=== PATIENT | male | born 1985 ===

== ENCOUNTER 2024-02-27 01:06 | Emergency (ER) | payer SELFPAY ==
[~2024-02-27] VITALS: Ht 175 cm; Wt 104.5 kg
[2024-02-27 01:18] VITALS: TEMP 98.2
[2024-02-27] MEDS ORDERED: Ibuprofen 600 MG TAB PO ONE (01:30)
[2024-02-27 01:45] LABS: BASO % 0.5 % (0.0-2.0); EOS # 0.1 K/mm3 (0.0-0.7); GRAN # 5.1 K/mm3 (1.4-6.5); GRAN % 63.3 % (42.2-75.2); HEMATOCRIT 45.2 % (42.0-52.0); HEMOGLOBIN 15.4 g/dl (13.5-18.0); LYMPH # 2.1 K/mm3 (1.2-3.4); LYMPH % 25.7 % (20.0-51.0); MEAN CELL VOLUME 88 fl (80.0-100.0); MEAN CORPUSCULAR HEMOGLOBIN 30 pg (27-31); MEAN CORPUSCULAR HGB CONC 34 g/dl (33.0-37.0); MEAN PLATELET VOLUME 9.6 fl (7.4-10.4); MONO # 0.7 K/mm3 (0.1-0.6); MONO % 9.2 % (1.7-9.3); PLATELET COUNT 330 K/mm3 (130-400); RED BLOOD COUNT 5.16 M/mm3 (4.20-5.60); REDCELL DISTRIBUTION WIDTH-CV 12.8 % (11.5-14.5)
[2024-02-27 02:12] LABS: ALBUMIN 3.5 g/dL (3.5-5.0); BILIRUBIN,TOTAL 0.6 mg/dL (0.2-1.2); CALCIUM 9.7 mg/dL (8.4-10.2); CREATININE, serum 0.87 mg/dL (0.72-1.25); POTASSIUM 3.7 mEq/L (3.5-4.5); TOTAL PROTEIN 7.4 g/dl (6.2-8.1)
[2024-02-27 02:54] LABS: C-REACTIVE PROTEIN 4.44 mg/dL (0.00-0.50)
[2024-02-27] MEDS ORDERED: NORCO 325 MG-51 TAB PO (03:08)
[2024-02-27] MEDS ORDERED: PREDNISONE20 MG PO (03:08)
[2024-02-27 03:35] VITALS: BP 140/81; PULSE 80
== END 2024-02-27 03:40 | disposition home or self-care (01) ==
LOC: COL.ER 01:06
PROVIDERS: Nurse Practitioner
DX: M25.571 Pain in right ankle and joints of right foot (principal); F17.200 Nicotine dependence, unspecified, uncomplicated